=== PATIENT | male | born 1945 | race Caucasian/White ===

== ENCOUNTER 2020-04-23 06:23 | Inpatient (IN) ==
[~2020-04-23 06:23] MED LIST: MORPHINE SULFATE 15 MG TABLET.SA PO PRN; ROPIVACAINE HCL/PF 100 MG, EPINEPHrine 0.2 MG, KETOROLAC TROMETHAMINE 30 MG in NORMAL S... IJ PRN; TRANEXAMIC ACID 1,000 MG in NORMAL SALINE 100 ML IV PRN; ceFAZolin SODIUM 1 GM VIAL IV PRN
[2020-04-23] MEDS ORDERED: ISOPROPYL ALCOHOL 480 APPL BTL MC ONE (06:26)
[2020-04-23] MEDS ORDERED: ceFAZolin SODIUM 1 GM VIAL ONE (06:26)
[2020-04-23] MEDS ORDERED: BUPIVACAINE HCL/PF 10 ML VIAL ONE (07:20)
[2020-04-23] MEDS ORDERED: LIDOCAINE HCL 20 ML VIAL ONE (07:20)
[2020-04-23] MEDS ORDERED: PROPOFOL VIAL IV ONE ×3 (07:20→09:52)
[2020-04-23] MEDS ORDERED: BUPIVACAINE HCL/EPINEPHRINE 50 ML VIAL IJ ONE (07:20)
[2020-04-23] MEDS ORDERED: MIDAZOLAM HCL/PF 5 MG/ML VIAL ONE (07:28)
[2020-04-23] MEDS ORDERED: SUCCINYLCHOLINE CHLORIDE 20 MG/ML VIAL ONE (07:32)
[2020-04-23] MEDS: RINGER'S SOLUTION,LACTATED 1,000 ML IV PRN ×3 (07:45→09:59)
--- NOTE | 2020-04-23 07:58 | ANES ---
Anesthesia Pre Procedure Eval Vitals/Labs: Last Vital Signs Temp 36.8 C 04/23/20 06:58 Pulse 72 04/23/20 06:58 Resp 18 04/23/20 06:58 BP 144/77 04/23/20 06:58 Pulse Ox 96 04/23/20 06:58 HOME MEDICATIONS Cholecalciferol (Vitamin D3) [Vitamin D3] 1,000 unit PO DAILY 04/11/15 [Last Taken Unknown] Nitroglycerin 0.4 mg SUBLINGUAL Q5MX3 PRN 04/11/15 [Last Taken Unknown] Pravastatin Sodium [Pravachol] 40 mg PO HS 04/11/15 [Last Taken Unknown] Verapamil HCl [Verapamil ER] 180 mg PO DAILY 04/11/15 [Last Taken Unknown] Acetaminophen [Tylenol] 1,000 - 1,500 mg PO TID PRN 03/14/16 [Last Taken Unknown] Aspirin [Aspirin Enteric Coated] 81 mg PO DAILY 03/14/16 [Last Taken 04/16/20] tamsulosin 0.4 mg capsule 0.4 mg PO DAILY #90 cap 09/16/19 [Last Taken Unknown] diltiazem HCl 240 mg capsule,extended release 24 hr 240 mg PO DAILY #90 cap 09/27/19 [Last Taken 04/23/20 05:30] Citalopram Hydrobromide [Citalopram HBr] 40 mg PO DAILY 09/28/19 [Last Taken Unknown] finasteride 5 mg tablet 5 mg PO DAILY #90 tab 10/28/19 [Last Taken Unknown] alprazolam 0.5 mg tablet 0.5 mg PO BID #180 tab 01/26/20 [Last Taken Unknown] Allergies/Adverse Reactions: Allergies Allergy/AdvReac Type Severity Reaction Status Date / Time amoxicillin [Amoxicillin] Allergy Severe Swelling Verified 04/23/20 07:08 of Throat Iodinated Contrast Media Allergy Severe THROAT Verified 04/23/20 06:38 SWELLS cyclobenzaprine HCl Allergy Intermediate HEART RACES Verified 04/23/20 06:38 [From Flexeril] penicillin G Allergy Unknown unsure Verified 04/23/20 06:38 acetaminophen [From Percocet] AdvReac Mild Verified 04/23/20 07:08 cephalexin AdvReac Mild Itching Verified 04/23/20 06:38 clindamycin AdvReac Mild STOMACH Verified 04/23/20 06:38 "IRVING" AND ACHES ezetimibe AdvReac Mild Verified 04/23/20 07:07 oxycodone [From Percocet] AdvReac Mild Verified 04/23/20 07:08 - Planned Procedure Planned Procedure: Left Total Knee Arthroplasty Medication List Reviewed:: Yes Allergies Verified: Yes Medical History (Last Reviewed 04/23/20 @ 07:56 by Nolberto Tucker CRNA) 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 Cade Hair. Angina pectoris (Chronic) Onset Date: Unknown Followed by Dr. Aries Sumner, [facility]. Circumflex provides collateral flow to the occluded LAD and RCA. On a combination of Diltiazem and Verapamil as antianginal medical therapy. Trochanteric bursitis, left hip (Chronic) Onset Date: Unknown Osteoarthritis of left knee (Chronic) Onset Date: Unknown Bilateral knee pain (Chronic) Onset Date: Unknown Lumbar herniated disc (Chronic) Onset Date: Unknown Hypercholesterolemia (Chronic) Onset Date: Unknown Controlled with medication. BPH (benign prostatic hyperplasia) (Chronic) Onset Date: Unknown Hip pain (Chronic) Onset Date: Unknown KARYN on CPAP (Chronic) Onset Date: ~11/20/09 Degenerative joint disease of knee (Chronic) Onset Date: Unknown bilateral Depression (Chronic) Onset Date: Unknown Anxiety (Chronic) HTN (hypertension) (Chronic) Onset Date: Unknown HLD (hyperlipidemia) (Chronic) Onset Date: Unknown History of nuclear stress test Onset Date: 04/25/[address] [facility]. Impression: Large area of infarction in the apical wall with chris infarct ischemia. Coronary artery disease Onset Date: 11/19/[address] Aries Sumner, [facility]. Circumflex provides collateral flow to the occluded LAD and RCA. Esophageal spasm Onset Date: Unknown Gastric ulcer Onset Date: Unknown Herniated disc Onset Date: Unknown lumbar TIA (transient ischemic attack) Onset Date: Unknown Trochanteric bursitis, unspecified hip Onset Date: Unknown Colon polyps Onset Date: Unknown Frequent headaches Onset Date: Unknown Myocardial infarction Onset Date: 11/19/90 Surgical History (Last Reviewed 04/23/20 @ 07:56 by Nolberto Tucker CRNA) Coronary angioplasty status Onset Date: ~12/28/97 History of ankle surgery Onset Date: ~1982 Left. History of cardiac catheterization Onset Date: 08/01/15 History of cardiac catheterization Onset Date: 01/05/09 History of cardiac catheterization Onset Date: 02/12/06 History of cardiac catheterization Onset Date: 06/20/99 History of cardiac catheterization Onset Date: 12/26/97 History of cardiac catheterization Onset Date: 01/08/95 History of cholecystectomy Onset Date: ~2004 Laparoscopic. History of colonoscopy Onset Date: 12/02/07 [facility]. History of coronary artery bypass graft Onset Date: ~1990 All grafts are occluded or non-functional. History of laminectomy Onset Date: ~2012 History of lumbar fusion Onset Date: 07/2017 [facility]. History of tonsillectomy Onset Date: Unknown S/P excision of lipoma Onset Date: 02/15/14 Dr. Joseph Santos [facility]. Base of skull. History of colonoscopy Onset Date: 03/19/16 Dr. Joseph Santos [facility]. Small polyp at 60cm. Diverticulosis Recheck in 5 years. History of esophagogastroduodenoscopy (EGD) Onset Date: 09/30/10 Dr. Joseph Petersen [facility]. 12' moderate chemical irritation, neg for metaplasia. Family History (Last Reviewed 04/23/20 @ 07:56 by Nolberto Tucker CRNA) Father , age 59 [place] Heart disease Mother , age 75 Heart disease Diabetes - Family Anesthesia History Family History:: no untoward family reactions to anesthesia - Airway/Neck/Teeth Denture Type: Full upper Neck Exam: limited range of motion Mallampatti Score: 3 Thyromental (T-M) distance: > 6 cm Mandibulo Hyoid distance: > 3 cm - Respiratory Respiratory History: CPAP/BiPAP home use Respiratory Physical: lungs clear Smoking Status: Former smoker Sleep Apnea currently treated: Yes Sleep Apnea by current assessment: Yes - Cardiovascular Cardiac History: SD, TIA, CAD, hypertension, hyperlipidemia Tolerate Activity: Fair Heart Sounds: Irregular - Gastrointestinal NPO since: MN - Anesthesia Assessment and Plan ASA Class: PS, III Anesthesia Type Plan: Spinal - possible gen with LMA, adductor canal block Planned difficult intubation/equipment available: No
[2020-04-23] MEDS ORDERED: ACETAMINOPHEN 500 MG TABLET PO PRN (09:56)
[2020-04-23] MEDS ORDERED: MORPHINE SULFATE 2 MG/ML DISP.SYRIN IV PRN (09:56)
[2020-04-23] MEDS ORDERED: DEXTROSE 5%-LACTATED RINGERS 1,000 ML IV PRN (09:56)
[2020-04-23] MEDS ORDERED: oxyCODONE HCL/ACETAMINOPHEN 1 TAB TABLET PO PRN (09:56)
[2020-04-23] MEDS ORDERED: diphenhydrAMINE HCL 50 MG/ML VIAL IV PRN (09:56)
[2020-04-23] MEDS ORDERED: MAGNESIUM HYDROXIDE 30 ML UDC PO PRN (09:56)
[2020-04-23] MEDS ORDERED: ZOLPIDEM TARTRATE 5 MG TABLET PO PRN (09:56)
[2020-04-23] MEDS ORDERED: ONDANSETRON HCL/PF 2 MG/ML VIAL IV PRN (09:56)
[2020-04-23] MEDS ORDERED: MAG HYDROX/ALUMINUM HYD/SIMETH 30 ML UDC PO PRN (09:56)
--- NOTE | 2020-04-23 10:00 | OR ---
Operative Report - Dictated Report Narrative: Date: 04/23/2020 Preoperative diagnosis: Left knee degenerative joint disease. Postoperative diagnosis: Left knee degenerative joint disease. Procedure: Left total knee arthroplasty. Surgeon: Daron Garcia M.D. Manager Human Capital: Coy Roche PA-C (provided and essential set of skilled, educated hands that assisted with transfer, positioning, prepping, draping, manipulation, retraction, placement of jigs, injection, insertion of implants, irrigation, closure wounds, and dressings all of which could not be performed by the available surgical crew) Anesthesia: Spinal with regional block and local periarticular joint injection. Complications: None Specimens: Bone. Estimated blood loss: Minimal. Tourniquet time: 80 Minutes at 300 millimeters of mercury. Retained implants: Depuy Attune size 8 left lugged cemented posterior stabilized femoral component. Size 7 fixed-bearing cemented tibial platform. 8 by 5 millimeter posterior stabilized cross-linked tibial insert. 41 millimeter medialized patella button. Indications: Mr. Kerr is a 75-year-old gentleman who has had longstanding left knee pain and arthrosis. This patient was followed in my clinic for period of time with significant complaints of left knee pain consistent with arthritic changes. He had failed conservative measures including, but not limited to, activity modification, passage of time, medications, and other conservative measures. Patient wished to proceed with surgical treatment. The risks, benefits, and alternatives were discussed in clinic. The risks of , blood clots, bleeding, infection, nerve/tendon blood vessel/ injury, malposition of components, intraoperative fracture, postoperative limited range of motion, persistent pain, failure of components, and need for additional procedures. Patient wished to proceed consent was obtained after answering all questions. Procedure: After marking the correct extremity on the floor, the patient was taken to the operating room. A timeout was performed. IV antibiotics consisting of Ancef were administered prior to the procedure. A regional followed by spinal anesthetic was induced by anesthesia, per my request, on the operative table with all bony prominences well-padded. Matthew catheter was placed, and a bump was placed under the operative side buttock. SCDs and MIS hose were utilized on the nonoperative leg. A well-padded tourniquet was applied to the operative thigh. The operative leg was then pre-scrubbed with alcohol, prepped, and draped in a standard sterile fashion. After exsanguinating the extremity with an Esmarch bandage, the tourniquet was inflated. After marking out the anterior knee for standard incision centered over the patella, the skin was incised and dissected down to the joint retinaculum. The joint retinaculum was marked out as well as the horizontal axis of the patella, and a standard medial parapatellar arthrotomy was then made. The most proximal aspect of the quadriceps tendon and the patella tendon insertion were protected from release. A partial synovectomy was performed as well as a resection of the infrapatellar fat pad. The distal femoral fat pad proximal to the trochlea was also resected using cautery. The soft tissues were elevated off the medial aspect of the proximal tibia using a Levin elevator ensuring that we did not transect the medial collateral ligament. Upon initial evaluation range of motion was approximately 10 degrees to 130 degrees of flexion. There were signs of advanced arthrosis in the medial, lateral, and patellofemoral joint spaces. There were large marginal osteophytes which were removed with a rongeur. The knee was hyperflexed and the patella was tucked laterally. Protecting the surrounding soft tissues with Homans, an entry drill was placed down the femoral canal using Whitesides line for guidance into the entry point. The intramedullary femoral alignment harley was utilized in order to cut the distal femur in 5 degrees of valgus resecting 10 millimeters of bone. Next the distal femur was sized to a size 8. A posterior referencing guide was utilized to place the distal femoral cutting block in 3 degrees of external rotation. This was pinned into place. The rotation was confirmed both visually and based on an atomic landmarks. The 4 in 1 cutting jig of the appropriate size was utilized in order to make all bony cuts. The jacob wing was used to ensure no notching. Retractors were utilized in order to protect surrounding soft tissues. This cut did not result in any excessive notching. We then cut the box centered over the distal femur. This allowed for resection of the anterior and posterior cruciate ligaments. I then turned my attention to the preparation of the tibia. Using an extra medullary tibial alignment harley, 3 millimeters of bone was resected off the medial articular surface. This was made perpendicular to the mechanical axis of the joint with the alignment harley centered over the ankle mortise. The alignment harley was checked and was noted to be parallel to the mechanical axis, centered over the medial one third of the tibial tubercle, paralleling the anterior surface of the tibia. We then turned our attention to the remaining meniscus and soft tissues. These were removed while protecting the surrounding ligaments and soft tissues. The marginal osteophytes off the anterior, posterior, medial, lateral aspects of the femur and tibia were removed. The tibia was sized out to a size 7. Next the tibia was drilled and punched in an externally rotated position. Next the trial femur and a series of tibial inserts were utilized in order to allow for full extension and maximal flexion. It was found that a 5 millimeter insert gave the best range of motion and stability at multiple flexion points as well as at full extension there was less than 2 mm of gapping both medially and laterally. There is minimal anterior translation with the knee at 90 degrees of flexion and no signs of being able to dislocate the knee. The patella was then prepared. The initial thickness was 28 millimeters. This was reamed down to 18 millimeters parallel to the anterior surface of the patella. It was sized out to a size 41 medialized patella button. This was then drilled and trialed. Without any medial restraint the patella tracked appropriately and did not sublux or dislocate. At this point, it was felt these were the appropriate sized implants, and all trials were removed. The standard periarticular joint injection consisting of ropivacaine, Toradol, and epinephrine were injected into the periarticular joint tissues. The bony surfaces were thoroughly irrigated with a pulsatile-suction saline irrigation device. A bone plug from the prior resected anterior chamfer cut was placed into the drill hole at the distal femur. The bony surfaces were then dried in preparation for placement of the implants. The cement was vacuum mixed per the experimental machinist's instructions. The cement was placed on the dry bony surfaces and posterior aspect of the implants. The implants were impacted into place, removing all extruded cement. At this point anesthesia administered tranexamic acid per protocol intravenously. The knee was placed in extension with axial loading with the trial insert while the cement cured. Once the cement cured, all remaining extruded cement was removed. The knee was placed through a range of motion with the trial insert to ensure appropriate range of motion and stability. Final range of motion was approximately 0 to 130 degrees. The knee was again thoroughly irrigated with pulsatile saline lavage. The final polyethylene insert was then impacted into place ensuring no retained soft tissues. The remaining periarticular joint injection was injected. A medium Hemovac drain was placed exiting superior laterally. The knee was then placed over a triangle and the arthrotomy was closed with interrupted #1 Vicryl after thoroughly irrigating the joint. The deep and subcutaneous tissues were closed with interrupted 0 and 3-0 Vicryl respectively. Skin was closed with a running subcutaneous 3-0 Monocryl and Prineo Dermabond dressing. 4 x 4's, Sof-Rol, and a full leg Stone wrap were applied. All sponge, needle, blade, and instrument c ounts were correct prior to closing the wounds. Postoperative condition: The patient was awoken and transferred to the postanesthesia care unit in stable condition. Plan is to be admitted to the in patient medical/surgical floor postoperatively for 24 hours of IV antibiotics, physical therapy, occupational therapy, and medical comanagement. Patient will be weightbearing as tolerated with range of motion as tolerated. DVT prophylaxis will be with SCDs, MIS hose, and pharmacological anticoagulation. Anticipated hospital stay is approximately 1-3 days.
--- NOTE | 2020-04-23 11:02 | ANES ---
Post Anesthesia Discharge - Transfer of Care Transfer of Care handoff given to nurse: Yes - Discharge from PACU Discharge from PACU when meets criteria: Yes
--- NOTE | 2020-04-23 11:03 | ANES ---
Post Anesthesia Assessment - Vital Signs Vitals: Last Vital Signs Temp 36.5 C 04/23/20 10:55 Pulse 80 04/23/20 10:55 Resp 12 04/23/20 10:55 BP 129/60 04/23/20 10:55 Pulse Ox 97 04/23/20 10:55 Airway Patency: Normal - Mental Status Level Of Consciousness: Awake - Pain Level Pain Score: 0 - N/V Assessment Nausea/Vomiting Presence: None Dehydration:: No
--- NOTE | 2020-04-23 11:07 | ANES ---
Anesthesia Procedure Note Procedure Note: ANESTHESIA PROCEDURE NOTE Date of procedure: 04/23/2020. Time of procedure: 05 19. Performed by: Dominick Tucker CRNA Broth Setter: Lala Gayle RN . Preprocedure diagnosis: Left knee DJD. Post procedure diagnosis: Same. Procedure: Ultrasound-guided left adductor canal Indications: Postoperative analgesia Findings: Patient brought to operating room #4 and given a spinal anesthetic. Patient's left inner thigh was prepped with ChloraPrep. Ultrasound utilized to identify the saphenous nerve in the left adductor canal. A 20-gauge 4 inch regional block needle was advanced under ultrasound guidance till tip of needle was placed just proximal to the saphenous nerve. 30 mL of 0.25% Marcaine with epinephrine 1-200,000 was injected with adequate spread of local anesthesia noted around the nerve. Regional block needle was removed intact. EBL: Minimal. Fluids: N/A. Specimen: N/A. Post procedure condition: The patient tolerated the procedure well. No complications were noted. Thank you for this consultation Dominick Tucker CRNA
[2020-04-23] MEDS: KETOROLAC TROMETHAMINE 15 MG/ML VIAL IV SCH ×3 (11:15→22:48)
[2020-04-23] MEDS: CEFAZOLIN SODIUM/DEXTROSE,ISO 1 GM/50 ML BAG IV SCH ×3 (11:26→22:56)
[2020-04-23] MEDS ORDERED: NITROGLYCERIN 0.4 MG/TAB BTL SL PRN (11:41)
[2020-04-23] MEDS: MORPHINE SULFATE 15 MG TABLET.SA PO SCH (20:42)
[2020-04-23] MEDS: VERAPAMIL HCL 180 MG TABLET.SA PO SCH (20:46)
[2020-04-23] MEDS: ALPRAZolam 0.5 MG TABLET PO SCH (20:49)
[2020-04-23] MEDS ORDERED: SENNOSIDES/DOCUSATE SODIUM 1 TAB TABLET PO SCH (21:00)
[2020-04-23] MEDS ORDERED: SIMVASTATIN 20 MG TABLET PO SCH (21:00)
[2020-04-24] MEDS: KETOROLAC TROMETHAMINE 15 MG/ML VIAL IV SCH ×2 (04:13→09:01)
[2020-04-24 06:26] LABS: Hematocrit 40.3 % (42.0-52.0); Hemoglobin 13.2 gm/dL (13.5-18.0); Mean Corpuscular Hemoglobin 29.8 pg (27-31); Mean Corpuscular Hgb Conc 32.8 g/dl (32-36); Mean Platelet Volume 9.7 fl (8-11.3); Platelet Count 143 K/mm3 (150-450); Red Blood Count 4.43 M/mm3 (4.7-6.0); Red Cell Distribution Width 12.5 % (11.5-14.0); White Blood Count 8.5 K/mm3 (4.0-10.5)
[2020-04-24 06:34] LABS: Anion Gap 6.8 mmol/L (6.8-13.8); BUN/Creatinine Ratio 12.9 (9.0-21.6); Calcium * 8.7 mg/dL (7.9-10.9); Carbon Dioxide 33.4 mmol/L (24-32.6); Estimated Creat Clear 57.5; Potassium 4.2 mmol/L (3.4-4.6)
[2020-04-24] MEDS ORDERED: ENOXAPARIN SODIUM 40 MG/0.4 ML SYRG SC SCH (08:56)
[2020-04-24] MEDS ORDERED: CHOLECALCIFEROL 1,000 UNIT CAPSULE PO SCH (09:00)
[2020-04-24] MEDS ORDERED: TAMSULOSIN HCL 0.4 MG CAP.SR.24H PO SCH (09:00)
[2020-04-24] MEDS ORDERED: DILTIAZEM HCL 240 MG CAP.SR.24H PO SCH (09:00)
[2020-04-24] MEDS ORDERED: FINASTERIDE 5 MG TABLET PO SCH (09:00)
[2020-04-24] MEDS ORDERED: CITALOPRAM HYDROBROMIDE 20 MG TABLET PO SCH (09:00)
[2020-04-24] MEDS: MORPHINE SULFATE 15 MG TABLET.SA PO SCH (09:01)
[2020-04-24] MEDS: ALPRAZolam 0.5 MG TABLET PO SCH (09:01)
[2020-04-24] MEDS: VERAPAMIL HCL 180 MG TABLET.SA PO SCH (09:07)
--- NOTE | 2020-04-24 12:52 | DS ---
Date of Discharge:: 04/24/20 Hospital Course: Mr. Kerr was admitted to the floor after undergoing left total knee arthroplasty. Tolerated this well. Was admitted to the floor postoperatively for 24 hours of IV antibiotics, pain control, medical comanagement, and occupational and physical therapy. OT and PT were consulted to assist with activities of daily living and ambulation. Was made weightbearing as tolerated with range of motion as tolerated. Pain was initially controlled with IV regimen. This was transitioned to oral once tolerating a by mouth intake. Was resumed on home diet and medications. Had a Matthew catheter inserted and the operating room which was discontinued on postoperative day 1. A drain was placed intraoperatively into the knee which was discontinued on postoperative day 1. Lovenox SCD and MIS hose were utilized for DVT prophylaxis. Vital signs remained stable to the hospital course. Serial labs were obtained which showed a final hemoglobin of 13.2 grams down from 15.3 g preoperative. BMP was reviewed and was stable. Physical examination throughout the hospital course showed an extremity that had sensation that was intact to light touch, palpable pulses, a benign wound, motor intact to the toes, ankle, and knee. Knee range of motion was approximately 5 degrees to 80 degrees. Once an oral pain regimen was tolerated and physical therapy goals were met, it was felt that they were stable for discharge to home. Instructions: Continue with weightbearing as tolerated and range of motion as tolerated. It is OK to shower on the wound if it is not draining. If you note any drainage or for comfort you can cover with dry gauze and tape. Change every 2-3 days as needed. Continue with physical therapy. Resume home diet. Report any fever over 101.5 Fahrenheit, uncontrolled pain, increased drainage, foul odor of drainage, new or increased calf pain or shortness of breath, or any other significant complaints. A 325mg dialy aspirin will be started after finishing anticoagulation if not allergic. Continue with MIS hose on the operative extremity until instructed otherwise. No driving until instructed otherwise. Follow up in approximately 10-14 days. Procedures Performed: see notes below List Procedures: Status post left total knee arthroplasty Results and Findings: Lab Pending Results 04/23/20 07:00: SARS-CoV-2 (PCR) Not detected 04/24/20 06:23: WBC 8.5, RBC 4.43 L, Hgb 13.2 L, Hct 40.3 L, MCV 91.0, MCH 29.8, MCHC 32.8, RDW 12.5, Plt Count 143 L, MPV 9.7 04/24/20 06:23: Sodium 135, Plasma Sodium 135, Potassium 4.2, Chloride 99, Carbon Dioxide 33.4 H, Anion Gap 6.8, BUN 15, Creatinine 1.16, Est GFR (Non-Af Amer) 65, BUN/Creatinine Ratio 12.9, Random Glucose 130 H, Calcium 8.7 Discharge Location: Home Disposition: Home self-care Condition: Good Discharge Activity: Activity as tolerated, Weight bearing, Other - With wheeled walker Discharge Diet: Low salt, Low fat/chol Referrals: Marc Jordan DO [Primary Care Provider] - Daron Garcia MD [Staff Physician] - 05/15/20 9:15 am Problem Oriented Discharge Instructions to Patient/Family: Total Knee Replacement, Care After, [id number] Additional Patient Instructions (free text): Physical Therapy at [facility] outpatient rehab on ThursdayApril 25 at 11:00am. Follow up Orthopedic office appointment on ThursdayMay 15 at 9:15am. Prescriptions (Any new or edited meds): Enoxaparin Sodium [Lovenox] 40 mg SC Q24H #7 disp.syrin Transmission Status: Pending to [facility] [facility] [employer] #[id number] Morphine Sulfate [Ms Contin] 15 mg PO Q12H #20 tablet.sa Transmission Status: Received by [employer] #[id number] oxyCODONE HCL/ACETAMINOPHEN [Percocet 5 MG/325 MG] 2 tab PO Q4H PRN #56 tab PRN Reason: Moderate Pain (Pain Scale 4-6) Transmission Status: Received by [employer] #[id number] Sennosides/Docusate Sodium [Senokot-S] 2 tab PO HS #30 tab Transmission Status: Pending to [facility] #[id number] Complete Home Medications List: Complete Home Medication List: Cholecalciferol (Vitamin D3) [Vitamin D3] 1,000 unit PO DAILY 04/11/15 Nitroglycerin 0.4 mg SUBLINGUAL Q5MX3 PRN 04/11/15 Pravastatin Sodium [Pravachol] 40 mg PO HS 04/11/15 Verapamil HCl [Verapamil ER] 180 mg PO DAILY 04/11/15 Acetaminophen [Tylenol] 1,000 - 1,500 mg PO TID PRN 03/14/16 Aspirin [Aspirin Enteric Coated] 81 mg PO DAILY 03/14/16 tamsulosin 0.4 mg capsule 0.4 mg PO DAILY #90 cap 09/16/19 diltiazem HCl 240 mg capsule,extended release 24 hr 240 mg PO DAILY #90 cap 09/27/19 Citalopram Hydrobromide [Citalopram HBr] 40 mg PO DAILY 09/28/19 finasteride 5 mg tablet 5 mg PO DAILY #90 tab 10/28/19 alprazolam 0.5 mg tablet 0.5 mg PO BID #180 tab 01/26/20 Enoxaparin Sodium [Lovenox] 40 mg SC Q24H #7 disp.syrin 04/24/20 Morphine Sulfate [Ms Contin] 15 mg PO Q12H #20 tablet.sa 04/24/20 Sennosides/Docusate Sodium [Senokot-S] 2 tab PO HS #30 tab 04/24/20 oxyCODONE HCL/ACETAMINOPHEN [Percocet 5 MG/325 MG] 2 tab PO Q4H PRN #56 tab 04/24/20 Amb Orders for Discharge: PT Evaluation and Treatment* Facility: [facility], Location: Rehabilitation Services Forms: Patient Portal Registration
[2020-04-24 13:56] VITALS: BP 114/56
== END 2020-04-24 14:15 | disposition home or self-care (01) | DRG 470 ==
LOC: MS 06:23 → EDSTATUS 08:00
PROVIDERS: ADMIT Orthopaedic Surgery; ATTEND Orthopaedic Surgery
DX: G47.33 Obstructive sleep apnea (adult) (pediatric); M17.12 Unilateral primary osteoarthritis, left knee; Z11.59 Encounter for screening for other viral diseases; I20.9 Angina pectoris, unspecified; E78.5 Hyperlipidemia, unspecified; D62 Acute posthemorrhagic anemia; I10 Essential (primary) hypertension; I25.2 Old myocardial infarction
CPT/HCPCS: 36415; 73560; 80048; 85027; 94660; 97110; 97116; 97161; 97165; 97535; C9803

== ENCOUNTER 2020-04-24 22:58 | Observation (INO) ==
[2020-04-24] MEDS ORDERED: ONDANSETRON HCL/PF 2 MG/ML VIAL IV ONE (23:17)
[2020-04-24] MEDS ORDERED: NORMAL SALINE 1,000 ML IV ONE (23:17)
[2020-04-24] MEDS ORDERED: ACETAMINOPHEN 325 MG TABLET PO ONE (23:18)
--- NOTE | 2020-04-24 23:27 | ERNOTE ---
Medical Problem HPI - Narrative Date of Service: 04/24/20 - General Chief Complaint: Nausea/Vomiting Time Seen by Provider: 04/24/20 23:11 Source: patient, family Exam Limitations: no limitations - Immun/Allergies/Home Medications Immunizations: IMMUNIZATION HX Immunizations Up to Date Yes History of Influenza Vaccine Yes Hx Pneumococcal Vaccination Yes Allergies/Adverse Reactions: Allergies amoxicillin [Amoxicillin] Allergy (Severe, Verified 04/24/20 23:44) Swelling of Throat Iodinated Contrast Media Allergy (Severe, Verified 04/24/20 23:44) THROAT SWELLS cyclobenzaprine HCl [From Flexeril] Allergy (Intermediate, Verified 04/24/20 23:44) HEART RACES penicillin G Allergy (Unknown, Verified 04/24/20 23:44) unsure acetaminophen [From Percocet] Adverse Reaction (Mild, Verified 04/24/20 23:44) upset stomach cephalexin Adverse Reaction (Mild, Verified 04/24/20 23:44) Itching clindamycin Adverse Reaction (Mild, Verified 04/24/20 23:44) STOMACH "IRVING" AND ACHES ezetimibe Adverse Reaction (Mild, Verified 04/24/20 23:44) joint pain, diarrhea oxycodone [From Percocet] Adverse Reaction (Mild, Verified 04/24/20 23:44) upset stomach Home Medications: HOME MEDICATIONS Cholecalciferol (Vitamin D3) [Vitamin D3] 1,000 unit PO DAILY 04/11/15 [Last Taken Unknown] Nitroglycerin 0.4 mg SUBLINGUAL Q5MX3 PRN 04/11/15 [Last Taken Unknown] Pravastatin Sodium [Pravachol] 40 mg PO HS 04/11/15 [Last Taken Unknown] Verapamil HCl [Verapamil ER] 180 mg PO DAILY 04/11/15 [Last Taken Unknown] Acetaminophen [Tylenol] 1,000 - 1,500 mg PO TID PRN 03/14/16 [Last Taken Unknow n] Aspirin [Aspirin Enteric Coated] 81 mg PO DAILY 03/14/16 [Last Taken 04/16/20] tamsulosin 0.4 mg capsule 0.4 mg PO DAILY #90 cap 09/16/19 [Last Taken Unknown] diltiazem HCl 240 mg capsule,extended release 24 hr 240 mg PO DAILY #90 cap 09/27/19 [Last Taken 04/23/20 05:30] Citalopram Hydrobromide [Citalopram HBr] 40 mg PO DAILY 09/28/19 [Last Taken Unknown] finasteride 5 mg tablet 5 mg PO DAILY #90 tab 10/28/19 [Last Taken Unknown] alprazolam 0.5 mg tablet 0.5 mg PO BID #180 tab 01/26/20 [Last Taken Unknown] Enoxaparin Sodium [Lovenox] 40 mg SC Q24H #7 disp.syrin 04/24/20 [Last Taken Unknown] Morphine Sulfate [Ms Contin] 15 mg PO Q12H #20 tablet.sa 04/24/20 [Last Taken Unknown] Sennosides/Docusate Sodium [Senokot-S] 2 tab PO HS #30 tab 04/24/20 [Last Taken Unknown] oxyCODONE HCL/ACETAMINOPHEN [Percocet 5 MG/325 MG] 2 tab PO Q4H PRN #56 tab 04/24/20 [Last Taken Unknown] - History of Present History Narrative: 75-year-old male was just discharged from the hospital this morning with a left knee replacement he was given 2 Percocets before he left the hospital and nothing since he has been complaining of nausea and vomiting and has not been ab le to urinate since arriving home tonight he developed a fever. He has been tested twice for COVID 19 both times negative he was accompanied to the emergency room by the paramedics who gave her Phenergan for his nausea upon arrival patient is alert awake his abdomen on inspection was distended palpated lower abdomen was tender Matthew cath was placed. Immediate output of about 800 cc bloody urine Date (Duration): 04/24/20 Time (Timing): 23:23 Timing: constant Severity: moderate Review of Systems - Review of Systems Constitutional: Present: fever, weakness EYE: Present: no symptoms reported ENT: Present: no symptoms reported Respiratory: Present: no symptoms reported Cardiology: Present: no symptoms reported Gastrointestinal/Abdominal: Present: nausea, vomiting, abdominal pain Genitourinary: Present: See HPI, decreased urinary output Musculoskeletal: Present: no symptoms reported Skin: Present: no symptoms reported Neurological: Present: no symptoms reported Endocrine: Present: no symptoms reported Psych: Present: no symptoms reported All Other Systems: All systems neg except as marked Medical History (Last Reviewed 04/24/20 @ 23:25 by Ariel Rivera MD) 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 Cade Hair. Angina pectoris (Chronic) Onset Date: Unknown Followed by Dr. Aries Sumner, [facility]. Circumflex provides collateral flow to the occluded LAD and RCA. On a combination of Diltiazem and Verapamil as antianginal medical therapy. Trochanteric bursitis, left hip (Chronic) Onset Date: Unknown Osteoarthritis of left knee (Chronic) Onset Date: Unknown Bilateral knee pain (Chronic) Onset Date: Unknown Lumbar herniated disc (Chronic) Onset Date: Unknown Hypercholesterolemia (Chronic) Onset Date: Unknown Controlled with medication. BPH (benign prostatic hyperplasia) (Chronic) Onset Date: Unknown Hip pain (Chronic) Onset Date: Unknown KARYN on CPAP (Chronic) Onset Date: ~11/20/09 Degenerative joint disease of knee (Chronic) Onset Date: Unknown bilateral Depression (Chronic) Onset Date: Unknown Anxiety (Chronic) HTN (hypertension) (Chronic) Onset Date: Unknown HLD (hyperlipidemia) (Chronic) Onset Date: Unknown History of nuclear stress test Onset Date: 04/25/[address] [facility]. Impression: Large area of infarction in the apical wall with chris infarct ischemia. Coronary artery disease Onset Date: 11/19/[address] Aries Sumner, [facility]. Circumflex provides collateral flow to the occluded LAD and RCA. Esophageal spasm Onset Date: Unknown Gastric ulcer Onset Date: Unknown Herniated disc Onset Date: Unknown lumbar TIA (transient ischemic attack) Onset Date: Unknown Trochanteric bursitis, unspecified hip Onset Date: Unknown Colon polyps Onset Date: Unknown Frequent headaches Onset Date: Unknown Myocardial infarction Onset Date: 11/19/90 Surgical History: Surgical History (Last Reviewed 04/24/20 @ 23:25 by Ariel Rivera MD) Coronary angioplasty status Onset Date: ~12/28/97 History of ankle surgery Onset Date: ~1981 Left. History of cardiac catheterization Onset Date: 08/01/15 History of cardiac catheterization Onset Date: 01/05/09 History of cardiac catheterization Onset Date: 02/12/06 History of cardiac catheterization Onset Date: 06/20/99 History of cardiac catheterization Onset Date: 12/26/97 History of cardiac catheterization Onset Date: 01/08/95 History of cholecystectomy Onset Date: ~2004 Laparoscopic. History of colonoscopy Onset Date: 12/02/07 [facility]. History of coronary artery bypass graft Onset Date: ~1990 All grafts are occluded or non-functional. History of laminectomy Onset Date: ~2012 History of lumbar fusion Onset Date: 07/[address] [facility]. History of tonsillectomy Onset Date: Unknown S/P excision of lipoma Onset Date: 02/15/14 [facility]. Base of skull. History of colonoscopy Onset Date: 03/19/16 [facility] Holt. Small polyp at 60cm. Diverticulosis Recheck in 5 years. History of esophagogastroduodenoscopy (EGD) Onset Date: 09/30/10 ALEJANDRO Merino. 12' moderate chemical irritation, neg for metaplasia. 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 Service: No Tobacco: Smoking Status: Former smoker Alcohol: alcohol intake: current alcohol intake frequency: holiday/special occasion Substance Use: substance use type: does not use Dietary Habits: caffeine: No Type: coffee Pets: pets and animals: dog(s) Physical Exam - Physical Exam General Appearance: Present: wd/wn, alert, moderate distress Head Exam: Present: normal inspection Eye Exam: Normal inspection: bilateral, PERRL: bilateral, EOMI: bilateral Ears, Nose, Throat: Present: normal except -, dry mucous membranes Neck: Present: normal inspection Respiratory: Present: no respiratory distress, normal breath sounds Cardiovascular/Chest: Present: regular rate, rhythm Gastrointestinal/Abdominal: Present: soft, tenderness, abnormal bowel sounds, distended, other - Distended bladder felt Male Genitals Exam: Present: normal genitalia Back Exam: Present: normal inspection Extremity Exam: Present: normal inspection, other - Left knee fresh surgical wound no redness discharge mild swelling Neurological Exam: Present: alert, oriented Skin Exam: Present: warm/dry Lymphatic Exam: Present: no adenopathy Progress - Results and Orders Patient's Lab Results:: I have reviewed the patient's lab results. Results and Orders: Laboratory Tests 04/24/20 04/24/20 23:20 23:30 WBC 6.1 D RBC 4.39 L Hgb 12.9 L Hct 39.9 L MCV 90.9 MCH 29.4 MCHC 32.3 RDW 12.7 Plt Count 148 L Neutrophils % 86.2 H Lymphocytes % 3.9 L Monocytes % 9.2 H Urine Color Yellow Urine Appearance Clear Urine pH 6.5 Ur Specific Sagle 1.015 Urine Protein Negative Urine Glucose (UA) Negative Urine Ketones Negative Urine Blood Negative Urine Nitrate Negative Urine Bilirubin Negative Urine Urobilinogen Normal Ur Leukocyte Esterase Negative Urine RBC None seen Urine WBC None seen Ur Epithelial Cells None seen Urine Bacteria None seen Urine Culture Comments Culture to follow Laboratory Tests 04/24/20 04/24/20 07 23:30 23:30 23:30 PT INR (Anticoag Therapy) PTT (Jose) 28.5 Sodium 132 Plasma Sodium 133 Potassium 3.9 Chloride 98 Carbon Dioxide 29.1 BUN 25 H D Creatinine 1.38 Est GFR (Non-Af Amer) 53 L BUN/Creatinine Ratio 18.1 Random Glucose 166 H Lactic Acid, Venous 1.4 Calcium 8.5 Calcium Adj for Albumin 9.1 Total Bilirubin 1.8 H AST 54 H ALT 112 H Alkaline Phosphatase 55 Troponin I Less than 0.017 Total Protein 6.0 L Albumin 2.9 L 04/24/20 23:30 PT 10.7 INR (Anticoag Therapy) 1.08 PTT (Jose) Sodium Plasma Sodium Potassium Chloride Carbon Dioxide BUN Creatinine Est GFR (Non-Af Amer) BUN/Creatinine Ratio Random Glucose Lactic Acid, Venous Calcium Calcium Adj for Albumin Total Bilirubin AST ALT Alkaline Phosphatase Troponin I Total Protein Albumin - Vital Signs Patient's Vital Signs:: I have reviewed the patient's vital signs. Vital Signs: Vital Signs 04/24/20 22:59 Temperature 37.8 C Pulse Rate 95 Respiratory Rate 22 H Blood Pressure 117/69 O2 Sat by Pulse Oximetry 90 L Pulse ox is low at 90 - EKG EKG #1 EKG: NSR EKG read: Interp. by me EKG Comments: EKG sinus rhythm with a heart rate of 80 low voltage in the precordial and a possible old anterior wall ND. Consistent with the patient's history - X-Ray X-Ray #1 X-Ray: chest Interpretation: Interp. by me X-ray Comments: Cardiomegaly no acute changes - Progress/Reassessment Chief Complaint: Nausea/Vomiting Progress Note-Subjective: 04/24/20 23:47 Patient was placed on 3 L of nasal cannula it was noted that his O2 sats was dropping to the 80s he was falling asleep he does have sleep apnea and uses a machine at home other than that he seems to be doing okay at the moment Plan - Plan Plan: Plan is to admit patient to hospital overnight for observation Dr. Hernandez will admit the patient Departure Clinical Impression: Fever, Acute viral syndrome, Postoperative urinary retention, Status post left knee surgery - Departure Disposition: Short Term Hospital Inpatient Condition: Stable Additional Instructions: Admit to observation Dr. Garcia Referrals: Marc Jordan DO [Primary Care Provider] -
[2020-04-24 23:37] LABS: Urine Bilirubin Negative (NEGATIVE); Urine Blood Negative /ul (NEGATIVE); Urine Ketone Negative (NEGATIVE); Urine Nitrite Negative (NEGATIVE); Urine Protein Negative (NEGATIVE); Urine Specific Gravity 1.015 SP.GR. (1.005-1.030); Urine Urobilinogen Normal (NORMAL); Urine pH 6.5 pH (5.0-7.0)
[2020-04-24 23:40] LABS: Hematocrit 39.9 % (42.0-52.0); Hemoglobin 12.9 gm/dL (13.5-18.0); Mean Cell Volume 90.9 fl (78-100); Mean Corpuscular Hemoglobin 29.4 pg (27-31); Mean Corpuscular Hgb Conc 32.3 g/dl (32-36); Neutrophil # 5.3 K/mm3 (1.3-6.0); Neutrophil % 86.2 % (42-75.0); Platelet Count 148 K/mm3 (150-450); Red Blood Count 4.39 M/mm3 (4.7-6.0); Red Cell Distribution Width 12.7 % (11.5-14.0); White Blood Count 6.1 K/mm3 (4.0-10.5)
[2020-04-24 23:43] LABS: Urine Appearance Clear (CLEAR); Urine Bacteria None Seen; Urine Color Yellow; Urine RBC None Seen /hpf (0-5); Urine WBC None Seen /hpf (0-5)
[2020-04-24 23:56] LABS: ALT 112 U/L (19-67); AST 54 U/L (0-48); Albumin * 2.9 gm/dl (3.4-5.0); Alkaline Phosphatase * 55 U/L (50-170); Anion Gap 8.8 mmol/L (6.8-13.8); BUN/Creatinine Ratio 18.1 (9.0-21.6); Bilirubin, Total 1.8 mg/dL (0.0-1.1); Blood Urea Nitrogen 25 mg/dL (6-23); Ca. Corrected For Albumin 9.1 mg/dL (8.4-10.2); Calcium * 8.5 mg/dL (7.9-10.9); Carbon Dioxide 29.1 mmol/L (24-32.6); Chloride 98 mmol/L (97-106); Glucose * 166 mg/dL (70-110); Potassium 3.9 mmol/L (3.4-4.6); Sodium 132 mmol/L (132-142); Troponin I Less than 0.017 ng/mL (0.00-0.10)
[2020-04-24 23:59] LABS: INR 1.08 INR (0.92-1.08); Prothrombin Time (Patient) 10.7 Seconds (9.1-10.7)
[2020-04-25] MEDS ORDERED: VERAPAMIL HCL 80 MG TABLET PO ONE (00:36)
[2020-04-25] MEDS ORDERED: ASPIRIN 81 MG TAB.CHEW PO ONE (00:37)
[2020-04-25] MEDS ORDERED: ALPRAZolam 0.25 MG TABLET PO ONE (00:40)
[2020-04-25] MEDS ORDERED: NITROGLYCERIN 0.4 MG/TAB BTL SL ONE (00:41)
[2020-04-25] MEDS ORDERED: TAMSULOSIN HCL 0.4 MG CAP.SR.24H PO SCH ×2 (00:45→21:00)
[2020-04-25] MEDS: HYDROcodone/ACETAMINOPHEN 1 EACH TABLET PO SCH ×2 (02:07→05:02)
[2020-04-25] MEDS ORDERED: MORPHINE SULFATE 15 MG TABLET.SA PO SCH (07:30)
[2020-04-25] MEDS: HYDROcodone/ACETAMINOPHEN 1 EACH TABLET PO PRN ×2 (07:49→14:13)
[2020-04-25] MEDS ORDERED: NITROGLYCERIN 0.4 MG/TAB BTL SL PRN (13:39)
[2020-04-25] MEDS ORDERED: ENOXAPARIN SODIUM 40 MG/0.4 ML SYRG SC SCH (13:45)
[2020-04-25] MEDS ORDERED: VERAPAMIL HCL 180 MG TABLET.SA PO SCH (13:45)
[2020-04-25] MEDS ORDERED: ALPRAZolam 0.5 MG TABLET PO SCH (13:45)
[2020-04-25] MEDS ORDERED: DILTIAZEM HCL 240 MG CAP.SR.24H PO SCH (13:45)
[2020-04-25] MEDS ORDERED: CHOLECALCIFEROL 1,000 UNIT CAPSULE PO SCH (13:45)
--- NOTE | 2020-04-25 14:36 | HPDIS ---
Chief Complaint - Chief Complaint Date of Service: 04/25/20 Time of Service: 14:21 Chief Complaint: Nausea and urinary retention History of Present Illness: Mr. Kerr is a 75-year-old gentleman who underwent left total knee arthroplasty 2 days ago. He was discharged from the hospital yesterday and prior to leaving received pain medicines which made him nauseous when he got home. He was having difficulty keeping food down and reported to the emergency department after calling the clinic to discuss his nausea. He was given antinausea medications was also noted to have some urinary retention and was catheterized and found to have a significant amount of urine with a mild blood tinge. He was otherwise essentially asymptomatic. He had labs urinalysis obtained as well as a chest x-ray which was negative. His wound was benign. Other than his nausea he states he had no other significant complaints. 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 Cade Hair. Angina pectoris (Chronic) Onset Date: Unknown Followed by Dr. Aries Sumner, [facility]. Circumflex provides collate ral flow to the occluded LAD and RCA. On a combination of Diltiazem and Verapamil as antianginal medical therapy. Trochanteric bursitis, left hip (Chronic) Onset Date: Unknown Osteoarthritis of left knee (Chronic) Onset Date: Unknown Bilateral knee pain (Chronic) Onset Date: Unknown Lumbar herniated disc (Chronic) Onset Date: Unknown Hypercholesterolemia (Chronic) Onset Date: Unknown Controlled with medication. BPH (benign prostatic hyperplasia) (Chronic) Onset Date: Unknown Hip pain (Chronic) Onset Date: Unknown KARYN on CPAP (Chronic) Onset Date: ~11/20/09 Degenerative joint disease of knee (Chronic) Onset Date: Unknown bilateral Depression (Chronic) Onset Date: Unknown Anxiety (Chronic) HTN (hypertension) (Chronic) Onset Date: Unknown HLD (hyperlipidemia) (Chronic) Onset Date: Unknown History of nuclear stress test Onset Date: 04/25/19 [facility]. Impression: Large area of infarction in the apical wall with chris infarct ischemia. Coronary artery disease Onset Date: 11/19/[address] Aries Sumner, [facility]. Circumflex provides collateral flow to the occluded LAD and RCA. Esophageal spasm Onset Date: Unknown Gastric ulcer Onset Date: Unknown Herniated disc Onset Date: Unknown lumbar TIA (transient ischemic attack) Onset Date: Unknown Trochanteric bursitis, unspecified hip Onset Date: Unknown Colon polyps Onset Date: Unknown Frequent headaches Onset Date: Unknown Myocardial infarction Onset Date: 11/19/90 Surgical History: Surgical History (Last Updated 04/25/20 @ 02:03 by Elo Mackenzie RN) History of total left hip arthroplasty Coronary angioplasty status Onset Date: ~12/28/97 History of ankle surgery Onset Date: ~1981 Left. History of cardiac catheterization Onset Date: 08/01/15 History of cardiac catheterization Onset Date: 01/05/09 History of cardiac catheterization Onset Date: 02/12/06 History of cardiac catheterization Onset Date: 06/20/99 History of cardiac catheterization Onset Date: 12/26/97 History of cardiac catheterization Onset Date: 01/08/95 History of cholecystectomy Onset Date: ~2004 Laparoscopic. History of colonoscopy Onset Date: 12/02/07 [facility]. History of coronary artery bypass graft Onset Date: ~1990 All grafts are occluded or non-functional. History of laminectomy Onset Date: ~2012 History of lumbar fusion Onset Date: 07/2017 [facility]. History of tonsillectomy Onset Date: Unknown S/P excision of lipoma Onset Date: 02/15/14 Dr. Joseph Santos [facility]. Base of skull. History of colonoscopy Onset Date: 03/19/16 Dr. Joseph Santos [facility]. Small polyp at 60cm. Diverticulosis Recheck in 5 years. History of esophagogastroduodenoscopy (EGD) Onset Date: 09/30/10 Dr. Joseph Petersen [facility]. 12' moderate chemical irritation, neg for metaplasia. Family History: Family History (Last Reviewed 04/25/20 @ 02:03 by Elo Mackenzie RN) Father , age 59 [place] Heart disease Mother , age 75 Heart disease Diabetes Social History: (Last Reviewed 04/25/20 @ 02:03 by Elo Mackenzie RN) Social History: adopted: No longterm: No Marital status: lives independently: No household members: spouse number of children: 2 caregiver/support person: No current occupational status: retired current occupation: retired-[employer] service Service: No Tobacco: Smoking Status: Former smoker Alcohol: alcohol intake: current alcohol intake frequency: holiday/special occasion Substance Use: substance use type: does not use Dietary Habits: caffeine: No Type: coffee Pets: pets and animals: dog(s) Review Of Systems (GEN) - Review of Systems Generalized/Overall Review: Present: Fatigue Respiratory: Present: No Symptoms Reported Genitourinary: Present: Retention Immunizations: IMMUNIZATION HX Immunizations Up to Date Yes History of Influenza Vaccine Yes Hx Pneumococcal Vaccination Yes Allergies/Adverse Reactions: Allergies Allergy/AdvReac Type Severity Reaction Status Date / Time amoxicillin [Amoxicillin] Allergy Severe Swelling Verified 04/24/20 23:44 of Throat Iodinated Contrast Media Allergy Severe THROAT Verified 04/24/20 23:44 SWELLS cyclobenzaprine HCl Allergy Intermediate HEART RACES Verified 04/24/20 23:44 [From Flexeril] penicillin G Allergy Unknown unsure Verified 04/24/20 23:44 acetaminophen [From Percocet] AdvReac Mild Verified 04/24/20 23:44 cephalexin AdvReac Mild Itching Verified 04/24/20 23:44 clindamycin AdvReac Mild STOMACH Verified 04/24/20 23:44 "IRVING" AND ACHES ezetimibe AdvReac Mild Verified 04/24/20 23:44 oxycodone [From Percocet] AdvReac Mild Verified 04/24/20 23:44 Home Medications: HOME MEDICATIONS Cholecalciferol (Vitamin D3) [Vitamin D3] 1,000 unit PO DAILY 04/11/15 [Last Taken Unknown] Nitroglycerin 0.4 mg SUBLINGUAL Q5MX3 PRN 04/11/15 [Last Taken Unknown] Pravastatin Sodium [Pravachol] 40 mg PO HS 04/11/15 [Last Taken Unknown] Verapamil HCl [Verapamil ER] 180 mg PO DAILY 04/11/15 [Last Taken Unknown] Aspirin [Aspirin Enteric Coated] 81 mg PO DAILY 03/14/16 [Last Taken 04/16/20] diltiazem HCl 240 mg capsule,extended release 24 hr 240 mg PO DAILY #90 cap 09/27/19 [Last Taken 04/23/20 05:30] Citalopram Hydrobromide [Citalopram HBr] 40 mg PO HS 09/28/19 [Last Taken Unknown] alprazolam 0.5 mg tablet 0.5 mg PO BID #180 tab 01/26/20 [Last Taken Unknown] Enoxaparin Sodium [Lovenox] 40 mg SC Q24H #7 disp.syrin 04/24/20 [Last Taken Unknown] Morphine Sulfate [Ms Contin] 15 mg PO Q12H #20 tablet.sa 04/24/20 [Last Taken Unknown] Sennosides/Docusate Sodium [Senokot-S] 2 tab PO HS #30 tab 04/24/20 [Last Taken Unknown] Finasteride [Proscar] 5 mg PO HS 04/25/20 [Last Taken Unknown] HYDROcodone/ACETAMINOPHEN [Rickreall 5-325 Tablet] 1 each PO Q4H PRN #30 tablet 04/25/20 [Last Taken Unknown] HYDROcodone/ACETAMINOPHEN [Rickreall 5-325] 1 ea PO Q4H PRN #30 tab 04/25/20 [Last Taken Unknown] Morphine Sulfate [Ms Contin] 15 mg PO Q12H tablet.sa 04/25/20 [Last Taken Unknown] Promethazine HCl [Phenergan (Promethazine)] 25 mg PO Q6H PRN #30 tab 04/25/20 [Last Taken Unknown] Tamsulosin HCl [Flomax] 0.4 mg PO HS 04/25/20 [Last Taken Unknown] Exam - Exam Vital Signs: Vital Signs - Last Taken Temp 36.5 C 04/25/20 14:10 Pulse 91 04/25/20 14:10 Resp 16 04/25/20 14:10 BP 130/68 04/25/20 14:10 Pulse Ox 91 L 04/25/20 14:10 Comprehensive Narrative: 04/25/20 14:23 He is resting in bed. Abdomen is soft, left lower extremity is benign and neurovascular intact, no wheezes, no cough, passing gas, Constitutional: Present: Alert, Oriented x3 Diagnostic Studies: Abnormal Lab Results 04/24/20 04/24/20 Range/Units 23:30 23:30 RBC 4.39 L (4.7-6.0) M/mm3 Hgb 12.9 L (13.5-18.0) gm/dL Hct 39.9 L (42.0-52.0) % Plt Count 148 L (150-450) K/mm3 Neutrophils % 86.2 H (42-75.0) % Lymphocytes % 3.9 L (20-51) % Monocytes % 9.2 H (0.0-9) % Lymphocytes # 0.24 L (1.5-3.5) k/mm3 BUN 25 H D (6-23) mg/dL Est GFR (Non-Af Amer) 53 L (60-130) mL/min Random Glucose 166 H (70-110) mg/dL Total Bilirubin 1.8 H (0.0-1.1) mg/dL AST 54 H (0-48) U/L ALT 112 H (19-67) U/L Total Protein 6.0 L (6.2-8.2) gm/dL Albumin 2.9 L (3.4-5.0) gm/dl Laboratory Results WBC 6.1 K/mm3 (4.0-10.5) D 04/24/20 23:30 RBC 4.39 M/mm3 (4.7-6.0) L 04/24/20 23:30 Hgb 12.9 gm/dL (13.5-18.0) L 04/24/20 23:30 Hct 39.9 % (42.0-52.0) L 04/24/20 23:30 MCV 90.9 fl (78-100) 04/24/20 23:30 MCH 29.4 pg (27-31) 04/24/20 23:30 MCHC 32.3 g/dl (32-36) 04/24/20 23:30 RDW 12.7 % (11.5-14.0) 04/24/20 23:30 Plt Count 148 K/mm3 (150-450) L 04/24/20 23:30 MPV 10.0 fl (8-11.3) 04/24/20 23:30 Immature Gran % (Auto) 0.20 % (0.001-0.429) 04/24/20 23:30 Immature Gran # (Auto) 0.01 K/mm3 (0.000-0.0310) 04/24/20 23:30 Neutrophils % 86.2 % (42-75.0) H 04/24/20 23:30 Lymphocytes % 3.9 % (20-51) L 04/24/20 23:30 Monocytes % 9.2 % (0.0-9) H 04/24/20 23:30 Eosinophils % 0.3 % (0.0-3.0) 04/24/20 23:30 Basophils % 0.2 % (0.0-1.0) 04/24/20 23:30 Nucleated RBC % 0.0 k/mm3 (0-1) 04/24/20 23:30 Neutrophils # 5.3 K/mm3 (1.3-6.0) 04/24/20 23:30 Lymphocytes # 0.24 k/mm3 (1.5-3.5) L 04/24/20 23:30 Monocytes # 0.6 k/mm3 (0.0-1.0) 04/24/20 23:30 Eosinophils # 0.0 k/mm3 (0.0-0.7) 04/24/20 23:30 Absolute Basophils 0.0 k/mm3 (0.0-0.1) 04/24/20 23:30 PT 10.7 Seconds (9.1-10.7) 04/24/20 23:30 INR (Anticoag Therapy) 1.08 INR (0.92-1.08) 04/24/20 23:30 PTT (Coffey) 28.5 Seconds (24-32) 04/24/20 23:30 Sodium 132 mmol/L (132-142) 04/24/20 23:30 Plasma Sodium 133 mmol/L (130-142) 04/24/20 23:30 Potassium 3.9 mmol/L (3.4-4.6) 04/24/20 23:30 Chloride 98 mmol/L (97-106) 04/24/20 23:30 Carbon Dioxide 29.1 mmol/L (24-32.6) 04/24/20 23:30 Anion Gap 8.8 mmol/L (6.8-13.8) 04/24/20 23:30 BUN 25 mg/dL (6-23) H D 04/24/20 23:30 Creatinine 1.38 mg/dL (0.4-1.4) 04/24/20 23:30 Est GFR (Non-Af Amer) 53 mL/min (60-130) L 04/24/20 23:30 BUN/Creatinine Ratio 18.1 (9.0-21.6) 04/24/20 23:30 Random Glucose 166 mg/dL (70-110) H 04/24/20 23:30 Lactic Acid, Venous 1.4 mmol/L (0.4-2.0) 04/24/20 23:30 Calcium 8.5 mg/dL (7.9-10.9) 04/24/20 23:30 Calcium Adj for Albumin 9.1 mg/dL (8.4-10.2) 04/24/20 23:30 Total Bilirubin 1.8 mg/dL (0.0-1.1) H 04/24/20 23:30 AST 54 U/L (0-48) H 04/24/20 23:30 ALT 112 U/L (19-67) H 04/24/20 23:30 Alkaline Phosphatase 55 U/L (50-170) 04/24/20 23:30 Troponin I Less than 0.017 ng/mL (0.00-0.10) 04/24/20 23:30 Total Protein 6.0 gm/dL (6.2-8.2) L 04/24/20 23:30 Albumin 2.9 gm/dl (3.4-5.0) L 04/24/20 23:30 Urine Color Yellow 04/24/20 23:20 Urine Appearance Clear (CLEAR) 04/24/20 23:20 Urine pH 6.5 pH (5.0-7.0) 04/24/20 23:20 Ur Specific Easley 1.015 SP.GR. (1.005-1.030) 04/24/20 23:20 Urine Protein Negative mg/dL (NEGATIVE) 04/24/20 23:20 Urine Glucose (UA) Negative mg/dL (NEGATIVE) 04/24/20 23:20 Urine Ketones Negative mg/dL (NEGATIVE) 04/24/20 23:20 Urine Blood Negative /ul (NEGATIVE) 04/24/20 23:20 Urine Nitrate Negative (NEGATIVE) 04/24/20 23:20 Urine Bilirubin Negative mg/dl (NEGATIVE) 04/24/20 23:20 Urine Urobilinogen Normal EU/dl (NORMAL) 04/24/20 23:20 Ur Leukocyte Esterase Negative /ul (NEGATIVE) 04/24/20 23:20 Urine RBC None seen /hpf (0-5) 04/24/20 23:20 Urine WBC None seen /hpf (0-5) 04/24/20 23:20 Ur Epithelial Cells None seen /hpf (0-5) 04/24/20 23:20 Urine Bacteria None seen (NONE) 04/24/20 23:20 Urine Culture Comments Culture to follow 04/24/20 23:20 Assessment/Plan - Narrative Narrative: He was admitted for observation and antinausea medications. He was doing better this morning and his work-up is essentially negative and normal for postoperative course. We change his pain medications which he tolerated. We will be sent home with nausea medicine as well as a change in pain medicines. He will be monitored for the ability to urinate prior to discharge. - Assessment/Plan (1) History of arthroplasty of left knee Problem: Chronic (2) CAD (coronary artery disease) Problem: Chronic (3) Prostate cancer Problem: Chronic (4) Postoperative urinary retention Problem: Acute (5) Hypercholesterolemia Problem: Chronic (6) BPH (benign prostatic hyperplasia) Problem: Chronic (7) Depression Problem: Chronic (8) Anxiety Problem: Chronic (9) HTN (hypertension) Problem: Chronic (10) HLD (hyperlipidemia) Problem: Chronic (11) Nausea & vomiting Problem: Acute (1) History of arthroplasty of left knee Problem: Acute (2) CAD (coronary artery disease) Problem: Acute (3) Prostate cancer Problem: Chronic (4) Postoperative urinary retention Problem: Acute (5) Hypercholesterolemia Problem: Chronic (6) BPH (benign prostatic hyperplasia) Problem: Chronic (7) Depression Problem: Chronic (8) Anxiety Problem: Chronic (9) HTN (hypertension) Problem: Chronic (10) HLD (hyperlipidemia) Problem: Chronic (11) Nausea & vomiting Problem: Acute Date of Discharge:: 04/25/20 Hospital Course: Mr. Kerr was admitted for urinary retention and nausea. This improved prior to discharge. He was otherwise doing well regards to his recovery from his total knee arthroplasty from 2 days ago. Pain medications were changed as well as additional nausea medication was added. He was felt to be stable for discharge to home. He will continue with his prior medications. He is instructed to monitor for any side effects related to the narcotics. Continue with his physical therapy. Continue with all prior instructions with regards to wound care and medications. Follow-up will be in 2 weeks. He should call with any ongoing concerns. Procedures Performed: none Results and Findings: Lab Pending Results 04/24/20 23:20: Urine Color Yellow, Urine Appearance Clear, Urine pH 6.5, Ur Specific Easley 1.015, Urine Protein Negative, Urine Glucose (UA) Negative, Urine Ketones Negative, Urine Blood Negative, Urine Nitrate Negative, Urine Bilirubin Negative, Urine Urobilinogen Normal, Ur Leukocyte Esterase Negative, Urine RBC None seen, Urine WBC None seen, Ur Epithelial Cells None seen, Urine Bacteria None seen, Urine Culture Comments Culture to follow 04/24/20 23:30: WBC 6.1 D, RBC 4.39 L, Hgb 12.9 L, Hct 39.9 L, MCV 90.9, MCH 29.4, MCHC 32.3, RDW 12.7, Plt Count 148 L, MPV 10.0, Immature Gran % (Auto) 0.20, Immature Gran # (Auto) 0.01, Neutrophils % 86.2 H, Lymphocytes % 3.9 L, Monocytes % 9.2 H, Eosinophils % 0.3, Basophils % 0.2, Nucleated RBC % 0.0, Neutrophils # 5.3, Lymphocytes # 0.24 L, Monocytes # 0.6, Eosinophils # 0.0, Absolute Basophils 0.0 04/24/20 23:30: Sodium 132, Plasma Sodium 133, Potassium 3.9, Chloride 98, Carbon Dioxide 29.1, Anion Gap 8.8, BUN 25 H D, Creatinine 1.38, Est GFR (Non-Af Amer) 53 L, BUN/Creatinine Ratio 18.1, Random Glucose 166 H, Calcium 8.5, Calcium Adj for Albumin 9.1, Total Bilirubin 1.8 H, AST 54 H, ALT 112 H, Alkaline Phosphatase 55, Troponin I Less than 0.017, Total Protein 6.0 L, Albumin 2.9 L 04/24/20 23:30: PTT (Coffey) 28.5 04/24/20 23:30: Lactic Acid, Venous 1.4 04/24/20 23:30: PT 10.7, INR (Anticoag Therapy) 1.08 Discharge Location: Home Disposition: Home self-care Condition: Stable Discharge Activity: Activity as tolerated, Weight bearing Discharge Diet: General/regular food Complete Home Medications List: Complete Home Medication List: Cholecalciferol (Vitamin D3) [Vitamin D3] 1,000 unit PO DAILY 04/11/15 Nitroglycerin 0.4 mg SUBLINGUAL Q5MX3 PRN 04/11/15 Pravastatin Sodium [Pravachol] 40 mg PO HS 04/11/15 Verapamil HCl [Verapamil ER] 180 mg PO DAILY 04/11/15 Aspirin [Aspirin Enteric Coated] 81 mg PO DAILY 03/14/16 diltiazem HCl 240 mg capsule,extended release 24 hr 240 mg PO DAILY #90 cap 09/27/19 Citalopram Hydrobromide [Citalopram HBr] 40 mg PO HS 09/28/19 alprazolam 0.5 mg tablet 0.5 mg PO BID #180 tab 01/26/20 Enoxaparin Sodium [Lovenox] 40 mg SC Q24H #7 disp.syrin 04/24/20 Morphine Sulfate [Ms Contin] 15 mg PO Q12H #20 tablet.sa 04/24/20 Sennosides/Docusate Sodium [Senokot-S] 2 tab PO HS #30 tab 04/24/20 Finasteride [Proscar] 5 mg PO HS 04/25/20 HYDROcodone/ACETAMINOPHEN [Rickreall 5-325 Tablet] 1 each PO Q4H PRN #30 tablet 04/25/20 HYDROcodone/ACETAMINOPHEN [Rickreall 5-325] 1 ea PO Q4H PRN #30 tab 04/25/20 Morphine Sulfate [Ms Contin] 15 mg PO Q12H tablet.sa 04/25/20 Promethazine HCl [Phenergan (Promethazine)] 25 mg PO Q6H PRN #30 tab 04/25/20 Tamsulosin HCl [Flomax] 0.4 mg PO HS 04/25/20 Forms: Patient Portal Registration
[2020-04-25 17:18] VITALS: BP 148/73
[2020-04-25] MEDS ORDERED: SIMVASTATIN 20 MG TABLET PO SCH (21:00)
[2020-04-25] MEDS ORDERED: CITALOPRAM HYDROBROMIDE 20 MG TABLET PO SCH (21:00)
[2020-04-25] MEDS ORDERED: FINASTERIDE 5 MG TABLET PO SCH (21:00)
[2020-04-25] MEDS ORDERED: SENNOSIDES/DOCUSATE SODIUM 1 TAB TABLET PO SCH (21:00)
== END 2020-04-25 16:45 | disposition home or self-care (01) ==
LOC: ER 22:58 → INTOOBSV 04-25 01:21 → MS 04-25 01:21
PROVIDERS: ADMIT Orthopaedic Surgery; ATTEND Orthopaedic Surgery
DX: R33.8 Other retention of urine; B34.9 Viral infection, unspecified; R11.0 Nausea; Z96.652 Presence of left artificial knee joint; Z98.890 Other specified postprocedural states
CPT/HCPCS: 36415; 71010; 71045; 80053; 81001; 83605; 84484; 85025; 85610; 85730; 87086; 93005; 96374; 99285; G0378; J2405